=== PATIENT | female | born 1995 | race Two or more races ===

== ENCOUNTER 2025-04-23 14:10 | Emergency (ER) | payer MEDICAID, SELFPAY ==
[2025-04-23 14:38] VITALS: BP 111/74; PULSE 75; RESP 18; TEMP 37.2; O2SAT 98
[2025-04-23 15:03] VITALS: BMI 43.4
[2025-04-23 15:51] LABS: Collection Type, Urine Voided
[2025-04-23 16:12] LABS: HCG Qualitative,Urine Negative
[2025-04-23 16:13] LABS: Bilirubin,Urine Negative (Negative); Blood,Urine Negative (Negative); Clarity,Urine Clear (Clear/Hazy); Color,Urine Yellow (Lt Yel-Yel); Culture Indicated,Urine Not Indicated; Glucose, Urine Negative (Negative); Ketones,Urine Negative (Negative); Leukocyte Esterase,Urine Negative (Negative); Nitrite,Urine Negative (Negative); PH,Urine 5.5 (5.0-7.0); Protein,Urine Trace (Neg - Trace); RBC,Urine 1 /hpf (0-3); Specific Gravity,Urine 1.037 (1.001-1.035); Squamous Epithelial Cell,Urine 2 /hpf (0-5); Urobilinogen,Urine Negative mg/dL (0.0-1.0); WBC,Urine < 1 /hpf (0-5)
[2025-04-23] MEDS: HYDROcodone/APAP 5/325 TABLET 1 TAB PO (16:15)
[2025-04-23] MEDS: ONDANSETRON ODT 4 MG TABRAP PO (16:17)
--- NOTE | 2025-04-23 17:06 | EDNOTE_ITS ---
<Statement entered by Elizabeth Sanchez MD - 05/06/25 14:47> As co-signing physician, I was present and available for consult prn. I concur with the plan and care as documented by the midlevel provider. ED Back Injury Pain RME/HPI General Chief Complaint: Back Pain/Injury Stated Complaint: RIGHT SIDE BACK PAIN FOR 2 DAYS Time Seen by Provider: 04/23/25 15:18 Arrival date/time: 04/23/25 14:10 This is a 29-year-old female that complains of right flank pain for the past 2 days. Patient states she has been studying and feels like she has been hunched over writing with her hand and also typing. Patient states she has an ache to her right flank area. Patient denies any urinary symptoms. Patient denies any trauma. Patient denies any numbness tingling. Patient denies any abdominal pain, nausea, vomiting, diarrhea. Related Data Previous Rx's ?Medication ?Instructions ?Recorded ibuprofen 800 mg tablet 800 mg PO Q6HR #30 tabs 11/20 promethazine-DM 6.25 mg-15 mg/5 mL 5 ml PO Q6H #180 mL 06/09/18 oral syrup triamcinolone acetonide 0.025 % 1 applicatio topical B ID #30 grams 12/21/19 topical cream albuterol sulfate 90 mcg/actuation 2 puff inhalation Q ID PRN 03/27/21 aerosol inhaler shortness of breath or wheez ing #8.5 grams azithromycin 250 mg tablet See Rx Instructions PO .COM PLEX #6 03/27/21 tabs sodium chloride 0.65 % nasal spray 2 spray intranasal QID #60 mL 03/27/21 aerosol (Saline Nasal Mist) cyclobenzaprine 10 mg tablet 10 mg PO HS PRN muscle sp asm #20 04/23/25 tabs ibuprofen 800 mg tablet 800 mg PO Q6H PRN pain #14 t abs 04/23/25 Allergies Allergy/AdvReac Type Severity Reaction Status Date / Time No Known Allergies Allergy Verified 04/23/25 14:14 Review of Systems Review of Systems Systems Reviewed: All systems reviewed, normal except as documented Past Medical History Past Medical History CARDIAC: Negative Congestive Heart Failure RESPIRATORY: Negative Chronic Obstructive Pulmonary Disease (COPD) GENITOURINARY: Negative Renal Disease ENDOCRINE: Negative Diabetes Mellitus Type 1 or Diabetes Mellitus Type 2 Social History SMOKING STATUS: Never smoker Travel History EBOLA RISK: No ED Exam Narrative Physical exam: VITAL SIGNS: Reviewed. GENERAL APPEARANCE: Alert and interactive, follows commands, no acute distress HEAD AND FACE: Non-traumatic. ENT: PERRL, conjuctiva pink and clear, eyelid no trauma, Mucous membrane moist. NECK: Supple, nontender, no nuchal rigidity. CHEST: No tenderness, no crepitus, no paradoxical movement, no retractions. LUNGS: breathing even and unlabored HEART: Regular rate, cap refill less than 2 seconds ABDOMEN: Soft, nondistended, no guarding, nontender NEUROLOGICAL: Gross motor function intact sensory function intact, Appropriate for age. MUSCULOSKELETAL: low back nontender, full range of motion. no midline tenderness, no meningismus, no step offs, pain to the lateral muscles of right mid back EXTREMITIES: No redness no swelling no skin breakdown on bilateral foot and leg. Distal neurovascular status intact bilateral foot SKIN: Color pink, dry, no rash, no lacerations, no abrasions, no contusions. Course Quality Measures none Orders Category Date Time Status HCG Qualitative,Urine Stat Lab 04/23/25 15:46 Completed Urinalysis, C/S if Indicated Stat Lab 04/23/25 15:46 Completed HYDROcodone*/APAP 5/325 [[place] 5/325] Med 04/23/25 15:53 Discontinued 1 tab PO X1 ONE Ibuprofen Tab [Motrin Tab] Med 04/23/25 17:06 Discontinued 800 mg PO X1 ONE Ondansetron Odt [Zofran Odt] Med 04/23/25 15:53 Discontinued 4 mg PO X1 ONE Vital Signs Vital signs: Vital Signs Temperature 99.0 F 04/23/25 14:38 Pulse Rate 75 04/23/25 14:38 Respiratory Rate 18 04/23/25 14:38 Blood Pressure 111/74 04/23/25 14:38 Pulse Oximetry (%) 98 04/23/25 14:38 Oxygen Delivery Method Room Air 04/23/25 14:38 Back Pain / Injury MDM Narrative MDM Narrative:: I spoke to patient at length. Patient was insistent that she wanted a CT or MRI done today. Patient states she thinks she has a pinched nerve. Patient states she looked it up and these are usually the test to get done. Explained to patient that she had no trauma and she reports having a repetitive motion she was doing for the past few days since she was studying. I explained to her that she likely is sore. I told her today we will treat her with pain medications. I first went to get a UA to check hCG and also to check to make sure she does not have a kidney stone. Patient insistent on having a CT MRI. I explained to patient that if symptoms change or worsen and she can come back to the emergency room or follow-up with her primary provider. Patient insistent that she wanted an MRI done and also wanted a cortisone shot to her back. I explained to patient that we do not do cortisone shots to the back. Patient states that someone told her that she had they do cortisone shots in the emergency room. I again explained to her that we do not do this. Patient states that she wanted to leave because we were going to do what she wanted. I explained to her that we would help her with her pain I wanted to make sure she was not and also that it was not a kidney stone. I explained to her that if it is a kidney stone I would order a CT of her abdomen and pelvis. Patient given [place] for pain. Will wait for urine hCG to come back. UA unremarkable. Patient appears to not be . went to waiting room to give pt results but patient not found in waiting room. Pt eloped Sonamon dictation: Although this document has been carefully reviewed, there may still be some phonetic and other typographical errors. These errors are purely grammatical due to imperfections in the software program and should not be construed in any way to compromise the substance of the patient's medical care during this visit. Patient data External records reviewed:: [facility] previous records Clinical information provided by:: patient Social determinants that could affect healthcare access:: none Patient has the following chronic illnesses:: none How is presenting disease/condition affected by chronic disease/condition?: no chronic disease Evaluation data The following diagnostics were reviewed and interpreted by me:: lab results and other (specify) Lab and/or radiology exams considered but not ordered:: none Interpretation Summary: see note Medications / Prescriptions Medications or Prescriptions considered but not ordered:: none Medication administrations:: Medication Administration History Discontinued Medications Hydrocodone Bitart/Acetaminophen (Hydrocodone/[place] 5/325 Tablet) 1 tab PO X1 ONE Stop: 04/23/25 15:54 Last Admin: 04/23/25 16:15 Dose: 1 tab Documented By: OA Ibuprofen (Ibuprofen Tab 400 Mg Tablet) 800 mg PO X1 ONE Stop: 04/23/25 17:07 Ondansetron HCl (Ondansetron Odt 4 Mg Tabrap) 4 mg PO X1 ONE; Protocol Stop: 04/23/25 15:54 Last Admin: 04/23/25 16:17 Dose: 4 mg Documented By: OA See MAR Consultations Consultation(s) initiated? (list below): No Diagnosis Most likely diagnosis given after review of the tests above:: back pain Admission Indicated Admission indicated?: not indicated Admission Request Was there a request for admission?: No Disposition Plan Disposition Plan: Discharge Discharge Attestation Discharge Attestation: The patient and all family members were given an opportunity to ask questions and understood the discharge instructions. Discharge instructions specifically effects, indications for sooner follow up or return to the emergency department, and the expected course of current diagnosis. Patient condition: Stable Discharge Plan Plan Patient Disposition: Elopement Patient condition on transfer: Stable Prescriptions/Referrals Prescriptions/Med Rec: New ibuprofen 800 mg tablet 800 mg PO Q6H PRN (Reason: pain) Qty: 14 0RF cyclobenzaprine 10 mg tablet 10 mg PO HS PRN (Reason: muscle spasm) Qty: 20 0RF No Action ibuprofen 800 mg tablet 800 mg PO Q6HR Qty: 30 0RF promethazine-DM 6.25-15 mg/5 mL syrup 5 ml PO Q6H Qty: 180 0RF triamcinolone acetonide 0.025 % cream 1 applicatio TOPICAL BID Qty: 30 0RF azithromycin 250 mg tablet See Rx Instructions .ROUTE .COMPLEX Qty: 6 0RF Rx Instructions: take 500 mg today (day 1), then 250 mg for 4 days (days 2-5) sodium chloride [Saline Nasal Mist] 0.65 % aerosol,spray 2 spray intranasal QID Qty: 60 0RF albuterol sulfate 90 mcg/actuation HFA aerosol inhaler 2 puff inhalation QID PRN (Reason: shortness of breath or wheezing) Qty: 8.5 0RF Referrals: Michael Hoskins MD [Primary Care Provider, Family Practice] - In 1 week Problem List Clinical Impression: Back pain Patient/Caregiver Discharge Instructions Discharge Activity: activity as tolerated Education Materials: ED Back Pain (Acute or Chronic) Additional Instructions: Follow up with primary provider in 1-2 days. Come back to ED if symptoms change or worsen Print Language: Kyrgyz Stand Alone Forms: Aline Award Info., Patient Portal Info Letter PA/NETWORK ENGINEER Supervising Physician PA/NETWORK ENGINEER Supervising Physician: [email or web address]
--- NOTE | 2025-04-23 17:43 | PC.NURSE ---
PATIENT CALLED FOR DISCHARGE PAPERWORK. NO ANSWER X2. 15 MINS APART
--- NOTE | 2025-04-23 18:40 | PC.NURSE ---
PATIENT DID NOT ANSWER FOR THIRD TIME IN ED LOBBY
== END 2025-04-23 18:42 | disposition left against medical advice (07) ==
PROVIDERS: Emergency Provider Nurse Practitioner Family; PCP Family Medicine
DX: M54.9 Dorsalgia, unspecified (principal); E11.9 Type 2 diabetes mellitus without complications
CPT/HCPCS: 81001; 81025; 99283; Q0162; A9270